=== PATIENT | male | born 1950 | race Caucasian/White ===

== ENCOUNTER 2019-07-23 08:59 | Day surgery (SDC) | payer OTHER, SELFPAY ==
[2019-07-23] VITALS (12 sets, daily range): BP systolic 97–140; BP diastolic 68–89; PULSE 49–79; RESP 11–16; TEMP 36–36.7; O2SAT 93–99; BMI 22.6
[2019-07-23] MEDS: SODIUM CHLORIDE 0.9% 1,000 ML 200 ML IV (09:50)
--- NOTE | 2019-07-23 10:11 | P.HP_ITS ---
History of Present Illness History of Present Illness Date Patient Seen: 07/23/19 Time Patient Seen: 10:11 Chief complaint: 15839 Narrative: This is a 69-year-old man with high risk family history for colon cancer. His father developed colon cancer in his 50s and in his 60s. The patient has been getting colonoscopies every 5 years since age 50. He has had polyps found on previous colonoscopies, but no cancers. He denies any melena or hematochezia. Denies abdominal pain or unexplained weight loss. Denies any heart problems, or other chronic illnesses. ROS: Thirteen system review is otherwise negative other than as mentioned below and in HPI. PE: GENERAL: Well groomed and cooperative. Appears stated age. Answers questions promptly and appropriately. Vital signs noted. HENT: Normocephalic, atraumatic. Hearing intact. Oral mucosa is pink and moist. EYES: Conjunctiva pink, sclera white, no periorbital swelling. CARDIOVASCULAR: Regular rate. No pedal edema. RESPIRATORY: Non-tachypneic, breathing comfortably on room air. GASTROINTESTINAL: Abdomen soft and non-distended GENITALURINARY: No flank tenderness. MUSCULOSKELETAL: Equal tone and mass bilaterally. SKIN: Warm, dry, soft, appropriate color for ethnicity. No other lesions, ra shes, or wounds. NEURO: Alert and Oriented X 3. No gross sensory deficits, or cognitive issues. PSYCH: Appropriate affect and mood. Patient History Medical History Diverticulosis (Acute) Impaired vision (Acute) Neuropathy (Acute) Surgical History Hx laparoscopic cholecystectomy (Acute) Family & Social History Social History: household members spouse,children Tobacco & Substance use: Smoking Status Never smoker alcohol intake former Substance Use Type does not use Meds Home Medications and Allergies Home Medications Medication Instructions Recorded Confirmed Type alpha lipoic acid 600 mg PO DAILY 07/23/19 07/23/19 History flaxseed oil 1,400 mg PO DAILY 07/23/19 07/23/19 History multivitamin 1 tab PO DAILY 07/23/19 07/23/19 History Allergies Allergy/AdvReac Type Severity Reaction Status Date / Time No Known Drug Allergies Allergy Verified 07/23/19 09:40 Exam Vital Signs (past 8 hours): - 07/23/19 09:51 Temperature 96.8 F L Pulse Rate 79 Respiratory Rate 15 Blood Pressure 140/89 Pulse Oximetry 99 Oxygen Delivery Method Room Air Assessment & Plan Assessment and plan (1) Family history of colon cancer in father: Current visit: Yes Status: Acute (2) Encounter for colonoscopy in patient with family history of colon cancer: Current visit: Yes Status: Acute Assessment & Plan narrative: This is a 69-year-old man with the high risk family history for colon cancer. He himself has had a personal history of polyps, but no cancers. Risks and benefits of colonoscopy and polypectomy were discussed with the patient including risk of bleeding, perforation, need for additional procedures. The patient desires to proceed with his colonoscopy. Time Spent With Patient Time with patient: 15-24 minutes Quality VTE Deep Vein Thrombosis/Pulmonary Embolism Present on Admission: No
--- NOTE | 2019-07-23 10:20 | PM.OP.ENDO ---
Operative Date/Time/Diagnoses Date of procedure: 07/23/19 Time of procedure: 10:20 Pre-op diagnosis: High risk family history for colon cancer, personal history of polyps Post-op diagnosis: other (Low-grade diverticulosis, grade 2 internal hemorrhoids) Procedure & Clinicians Study performed: Surveillance colonoscopy Same procedure as scheduled: Yes Indications: Patient with high risk family history of colon cancer, personal history of colon polyps Surgeon: Hayley Busby Procedure Notes SCOAP/Timeout: Performed Procedure in detail: The patient was brought to the room and placed in left lateral decubitus position with all bony prominences padded. A time-out was performed and then the patient was given procedural sedation starting with 4 mg of Versed and 100 mcg of fentanyl. Total of 6 mg of Versed and 150 micro g of fentanyl were given the entire procedure. Vitals were monitored throughout the procedure and remained stable. Once adequately sedated the procedure was begun. A rectal exam was performed revealing no abnormalities. The colonoscope was then introduced to the rectum and advanced to the cecum in the usual fashion. The colon was quite atonic and tortuous and took several advanced maneuvers and a prolonged procedure number to reach the cecum.The cecum was identified by the appendiceal orifice, the mucosal tri-fold, and the ileocecal valve. The scope was then retracted while rotating side to side and examining each mucosal fold. Low-grade diverticulosis, and grade 2 internal hemorrhoids were found. No polyps or masses were seen. At the conclusion of the procedure retroflexion was performed and small grade 1-2 internal hemorrhoids without stigmata of bleeding were seen. The scope was then withdrawn from the rectum the procedure was concluded. The patient tolerated the procedure well and was transferred to the PACU in stable condition. Scope withdrawal time: 9 Sedation minutes: 30 Findings: diverticulosis and internal hemorrhoids (Low-grade) Specimen(s): none sent Complications: none Impression: Diverticulosis and low-grade internal hemorrhoids Post-procedure Recommendations: Colonscopy in 5 years (Due to personal history of polyps and high risk family history) Follow up: as needed Disposition: PACU
[2019-07-23] MEDS: MIDAZOLAM 5 MG/5 ML VIAL IV (10:54)
[2019-07-23] MEDS: fentaNYL 250 MCG/5 ML INJ IV (10:54)
== END 2019-07-23 12:10 | disposition home or self-care (01) ==
PROVIDERS: PCP Family Medicine; Visit Provider Surgery
PROC: 0DJD8ZZ Inspection of Lower Intestinal Tract, Via Natural or Artificial Opening Endoscopic (ICD-10-PCS; CPT 45378; principal; 2019-07-23 10:15)
DX: Z12.11 Encounter for screening for malignant neoplasm of colon (principal); Z86.010 Personal history of colon polyps; Z80.0 Family history of malignant neoplasm of digestive organs; K57.30 Diverticulosis of large intestine without perforation or abscess without bleeding; K64.0 First degree hemorrhoids
CPT/HCPCS: G0105; 99152; 99153; J2250; J3010

== ENCOUNTER → 2025-04-08 16:06 | Outpatient (CLI) | payer OTHER, SELFPAY ==
--- NOTE | 2025-04-08 16:09 | DI.MRI.S_ITS ---
PROCEDURE: MR STROKE Pre- and post-contrast brain MRI, non-contrast brain MR angiogram, pre- and postcontrast neck MR angiogram INDICATIONS: Stroke Protocol. Left-sided pulsatile tinnitus, left eye pain for 1 month. TECHNIQUE: Brain: Noncontrast axial T1 spin echo, axial T2 fast spin echo, sagittal and axial FLAIR, coronal T2 fast spin echo, axial gradient echo, axial diffusion and ADC through the brain. After the administration of contrast, axial 3D VIBE of the cranial vasculature and brain. Brain MRA: Non-contrast 3-D time of flight MR angiogram, with multiple kehjokk-ndyfeeumz-xydolwblse (MIP) reformats performed. Neck MRA: Axial and sagittal TruFISP through the neck. Coronal dynamic MR angiogram during administration of contrast in the arterial and venous phases, with 3- dimenstional tvecbzf-sahjobgoa-itdhspwuok (MIP) reformats constructed from subtraction images. COMPARISON: None. FINDINGS: Image quality: Excellent. BRAIN: CSF spaces: Ventricles are normal in size and shape. Basal cisterns are patent. No extra-axial fluid collections. Brain: No intracranial bleeds or mass effects. Welsh-white matter interface is normal. Diffusion weighted images show no acute infarct. Brainstem appears normal. Normal intravascular flow voids are present. No abnormal intracranial enhancement. Note is made of age-appropriate brain parenchymal volume loss and chronic small vessel ischemic changes. Symmetric calcification can be seen involving the basal ganglia, which is considered to be normal for age. The Skull and face: Calvarial marrow signal is normal. Orbits appear normal. Sinuses: Left maxillary sinus mucous retention cysts are seen. The paranasal sinuses otherwise appear clear. No abnormal fluid is seen within the mastoid air cells. BRAIN MR ANGIOGRAM: Anterior circulation: Intracranial internal carotid arteries are normal in size and enhancement. The flow within the paired anterior cerebral arteries is normal and symmetric. The flow within the middle cerebral arteries is normal and symmetric. The anterior communicating artery is seen. No stenoses, occlusions, or aneurysms. Posterior circulation: Visualized portions of the vertebral arteries demonstrate normal caliber, and join to form a normal appearing basilar artery. There is a prominent right posterior communicating artery seen, with an accompanying diminutive right P1 segment. This is attributed to a type origin of the right posterior cerebral artery, which is considered to be a normal developmental variant of typically no clinical consequence. The flow within the posterior cerebral arteries is normal and symmetric. No aneurysms are seen. NECK MR ANGIOGRAM: Carotids: Incidental note is made of a common origin of the right brachiocephalic artery and the left common carotid artery (bovine type arch). This is considered to be a developmental variant of no clinical consequence. The origins of the common carotid arteries appear patent. The calibers and courses of both common carotid arteries are normal. The bifurcation regions appear normal bilaterally. The internal carotid arteries demonstrate normal caliber. Moderate tortuosity can be seen involving the internal carotid arteries. Posterior circulation: The origins of the vertebral arteries appear patent. More superior portions of both vertebral arteries demonstrate normal course and caliber, and join to form a normal appearing basilar artery. Miscellaneous: Subclavian arteries appear patent. Pre-contrast images through the neck show no soft tissue abnormalities. IMPRESSION: No imaging explanation is found for this patient's presenting symptoms. BRAIN MRI: No findings of acute or subacute infarction can be seen. No masses or abnormal enhancement can be seen. BRAIN MR ANGIOGRAM: No significant intracranial arterial abnormality is seen. Yftanu-we-Ojqkiq developmental anomalies incidentally noted. NECK MR ANGIOGRAM: Within the arteries of the neck, no hemodynamically significant stenosis can be seen. There is moderate tortuosity noted of the internal carotid arteries. Bovine type aortic branching pattern incidentally noted. Dictated by: Douglas Sanches M.D. on 04/08/2025 at 17:34 Approved by: Douglas Sanches M.D. on 04/08/2025 at 17:37
== END ==
PROVIDERS: PCP Family Medicine; Referring Provider Family Medicine; Visit Provider Family Medicine
DX: H93.A2 Pulsatile tinnitus, left ear (principal); I77.1 Stricture of artery
CPT/HCPCS: 70544; 70549; 70553; A9579